=== PATIENT | female | born 1960 ===

== ENCOUNTER 2020-12-19 00:21 | Inpatient (IN) ==
[2020-12-19] MEDS ORDERED: SODIUM CHLORIDE 0.9% 1,000 ML IV STA (01:02)
[2020-12-19] MEDS ORDERED: PANTOPRAZOLE 40 MG VIAL IV STA (01:03)
[2020-12-19] MEDS ORDERED: ONDANSETRON 4 MG/2 ML VIAL IV STA (01:03)
[2020-12-19] MEDS ORDERED: SODIUM CHLORIDE 0.9% 1,000 ML IV PRN (01:06)
[2020-12-19] MEDS ORDERED: GLUCAGON 1 MG VIAL IM PRN (01:19)
[2020-12-19] MEDS ORDERED: DEXTROSE 50% 25 GM/50 ML VIAL IV PRN (01:19)
[2020-12-19] MEDS ORDERED: ONDANSETRON 4 MG/2 ML VIAL IV PRN (01:19)
[2020-12-19] MEDS ORDERED: ACETAMINOPHEN 325 MG TABLET PO PRN (01:19)
[2020-12-19 01:23] LABS: INR 1.3; PT Patient Result 14.1 SECS (9.8-11.9); Partial Thromboplastin Time 33.1 SECS (23.9-33.8)
[2020-12-19 01:26] LABS: Bilirubin,Total 1.9 MG/DL (0.2-1.0); Calcium 7.5 MG/DL (8.5-10.1); Osmolality,Calculated 278.5 MOS/KG (273-304); Potassium 3.6 MMOL/L (3.5-5.1); Total Protein 6.5 G/DL (5.0-7.5)
[2020-12-19 01:34] LABS: Basophils % 0.1 % (0.0-0.8); Eosinophils % 0.1 % (0.00-10.9); Immature Granulocytes % 0.7 %; Immature Granulocytes Absolute 0.06 #; Lymphocytes # 1.2 10*3/uL (1.4-4.0); Lymphocytes % 14.7 % (21.3-54.2); Mean Corpuscular HGB Conc 25.8 GM/DL (32-36); Mean Corpuscular Volume 79.5 FL (87-102); Monocytes % 6.5 % (1.7-12.7); NRBC # 0.03 10*3/uL; Neutrophils % 77.9 % (38.7-73.9); Red Cell Distribution Width 19.9 % (9.3-17.3); White Blood Count 8.4 T/CUMM (4-12)
[2020-12-19 01:40] LABS: Hematocrit 15.1 VOL% (35.7-47.0); Hemoglobin 3.9 GM/DL (12.0-16.0); Platelet Count 66 T/CUMM (130-400)
[2020-12-19 05:09] LABS: Platelet Estimate Decreased; Total Cells Counted 100
[2020-12-19 05:10] LABS: Acanthocytes 2+; Anisocytosis 2+; Hypochromasia 3+; Macrocytosis Slight; Microcytosis 2+; Ovalocytes 2+; Target Cells 1+
[2020-12-19 05:11] LABS: Lymphocytes 13 % (20-55); Polychromasia 2+; Segmented Neutrophils 79 % (50-85)
[2020-12-19] MEDS: PANTOPRAZOLE INJ 200 MG in SODIUM CHLORIDE 0.9% 250 ML IV SCH (05:42)
[2020-12-19] MEDS: LACTULOSE 20 GM/30 ML UDCUP PO SCH ×2 (15:06→20:46)
[2020-12-19 18:14] LABS: Hematocrit 28.6 VOL% (35.7-47.0)
[2020-12-19 18:15] LABS: Hemoglobin 8.4 GM/DL (12.0-16.0)
[2020-12-19 19:21] LABS: Hepatitis B Core IgM Quant < 0.05 Index; Hepatitis B Surface Ag Quant < 0.10 Index; Hepatitis B Surface Ag Result Non-Reactive (NonReactive); Hepatitis C Virus Ab Result Non-Reactive (NonReactive)
[2020-12-19 19:45] LABS: Hematocrit 30.4 VOL% (35.7-47.0)
[2020-12-20 01:00] LABS: Hematocrit 27.5 VOL% (35.7-47.0); Hemoglobin 8.3 GM/DL (12.0-16.0)
[2020-12-20 04:52] LABS: Folate 12.5 NG/ML (5.38-24.0); Vitamin B12 1197 PG/ML (211-911)
[2020-12-20 05:39] LABS: Basophils % 0.6 % (0.0-0.8); Eosinophils # 0.2 10*3/uL (0.0-0.87); Eosinophils % 3.6 % (0.00-10.9); Hematocrit 27.8 VOL% (35.7-47.0); Hemoglobin 8.6 GM/DL (12.0-16.0); Immature Granulocytes Absolute 0.05 #; Lymphocytes # 1.1 10*3/uL (1.4-4.0); Lymphocytes % 22.8 % (21.3-54.2); Mean Corpuscular HGB Conc 30.9 GM/DL (32-36); Mean Corpuscular Volume 81.8 FL (87-102); Monocytes % 9.2 % (1.7-12.7); NRBC # 0.07 10*3/uL; Neutrophils % 62.8 % (38.7-73.9); Red Cell Distribution Width 17.2 % (9.3-17.3)
[2020-12-20 05:40] LABS: Platelet Count 54 T/CUMM (130-400)
[2020-12-20 06:00] LABS: Hypochromasia 2+; Polychromasia Slight
[2020-12-20 06:01] LABS: Microcytosis 2+; Platelet Estimate Decreased
[2020-12-20 06:06] LABS: % Iron Saturation 16.9 % (18-50); Ferritin 12.8 ng/ml (8-252)
[2020-12-20] MEDS: PANTOPRAZOLE INJ 200 MG in SODIUM CHLORIDE 0.9% 250 ML IV SCH (06:42)
[2020-12-20 06:52] LABS: Sedimentation Rate-Westergren 51 MM/HR (0-30)
[2020-12-20 11:17] LABS: Hemoglobin A1 (Alkaline) 98.1 % (96.5-98.5); Hemoglobin A2 (Alkaline) 1.9 % (1.5-3.5)
[2020-12-20] MEDS: LACTATED RINGERS 1,000 ML IV SCH (11:32)
[2020-12-20] MEDS ORDERED: BISACODYL 5 MG TABLET PO ONE (12:00)
[2020-12-20] MEDS ORDERED: LIDOCAINE 2% 5 ML VIAL ONE (12:31)
[2020-12-20] MEDS ORDERED: propofoL 200 MG/20 ML VIAL IV ONE (12:31)
[2020-12-20] MEDS: LACTULOSE 20 GM/30 ML UDCUP PO SCH ×2 (14:21→20:48)
[2020-12-20] MEDS ORDERED: POLYETHYLENE GLYCOL POWDER 255 GM BOTTLE PO ONE (18:00)
[2020-12-20] MEDS: PROPRANOLOL 10 MG TABLET PO SCH (20:48)
[2020-12-21 04:55] LABS: Basophils % 0.7 % (0.0-0.8); Eosinophils # 0.2 10*3/uL (0.0-0.87); Eosinophils % 5.7 % (0.00-10.9); Hemoglobin 8.7 GM/DL (12.0-16.0); Immature Granulocytes Absolute 0.04 #; Lymphocytes % 25.7 % (21.3-54.2); Mean Corpuscular Volume 84.1 FL (87-102); Mean Platelet Volume 11.7 FL (9.6-12.0); Monocytes % 8.4 % (1.7-12.7); NRBC # 0.03 10*3/uL; Neutrophils % 58.5 % (38.7-73.9); Platelet Count 62 T/CUMM (130-400); Red Blood Count 3.45 MC/CUMM (3.8-5.5); Red Cell Distribution Width 17.6 % (9.3-17.3)
[2020-12-21 05:17] LABS: Hypochromasia 1+; Microcytosis 1+; Platelet Estimate Decreased
[2020-12-21 05:25] LABS: Albumin 2.1 G/DL (3.4-5.0); Bilirubin,Total 2.5 MG/DL (0.2-1.0); Calcium 7.7 MG/DL (8.5-10.1); Osmolality,Calculated 280.1 MOS/KG (273-304); Potassium 3.6 MMOL/L (3.5-5.1); Total Protein 6.7 G/DL (5.0-7.5)
[2020-12-21] MEDS ORDERED: propofoL 200 MG/20 ML VIAL IV ONE (13:16)
[2020-12-21] MEDS ORDERED: LIDOCAINE 2% 5 ML VIAL ONE ×2 (13:16)
[2020-12-21] MEDS: PANTOPRAZOLE 40 MG VIAL IV SCH ×3 (15:25→21:50)
[2020-12-21] MEDS: PROPRANOLOL 10 MG TABLET PO SCH ×2 (15:25→21:50)
[2020-12-21] MEDS: FUROSEMIDE 40 MG TABLET PO SCH (15:25)
[2020-12-21] MEDS: LACTULOSE 20 GM/30 ML UDCUP PO SCH ×3 (18:52→21:55)
[2020-12-21] MEDS: LACTATED RINGERS 1,000 ML IV SCH (19:27)
[2020-12-22 06:10] LABS: Basophils % 0.5 % (0.0-0.8); Eosinophils # 0.2 10*3/uL (0.0-0.87); Eosinophils % 4.2 % (0.00-10.9); Hematocrit 28.5 VOL% (35.7-47.0); Hemoglobin 8.5 GM/DL (12.0-16.0); Immature Granulocytes % 0.5 %; Immature Granulocytes Absolute 0.02 #; Lymphocytes # 1.1 10*3/uL (1.4-4.0); Lymphocytes % 29.1 % (21.3-54.2); Mean Corpuscular HGB Conc 29.8 GM/DL (32-36); Mean Corpuscular Volume 84.8 FL (87-102); Monocytes % 11.7 % (1.7-12.7); Platelet Count 60 T/CUMM (130-400); Red Blood Count 3.36 MC/CUMM (3.8-5.5); White Blood Count 3.9 T/CUMM (4-12)
[2020-12-22 06:31] LABS: Bilirubin,Total 2.1 MG/DL (0.2-1.0); Calcium 7.6 MG/DL (8.5-10.1); Potassium 3.4 MMOL/L (3.5-5.1); Total Protein 6.8 G/DL (5.0-7.5)
[2020-12-22 06:34] LABS: Hypochromasia 1+
[2020-12-22 06:35] LABS: Microcytosis 1+; Polychromasia Slight
[2020-12-22 06:36] LABS: Platelet Estimate Decreased
[2020-12-22] MEDS ORDERED: POTASSIUM CHLORIDE 20 MEQ/15 ML UDCUP PO ONE (08:56)
[2020-12-22] MEDS ORDERED: SPIRONOLACTONE 25 MG TABLET PO SCH (09:00)
[2020-12-22] MEDS ORDERED: FERROUS SULFATE 325 MG TABLET PO SCH (09:00)
[2020-12-22] MEDS: FUROSEMIDE 40 MG TABLET PO SCH (09:49)
[2020-12-22] MEDS: LACTULOSE 20 GM/30 ML UDCUP PO SCH (09:49)
[2020-12-22] MEDS: PROPRANOLOL 10 MG TABLET PO SCH (09:49)
[2020-12-22] MEDS: PANTOPRAZOLE 40 MG VIAL IV SCH (09:50)
[2020-12-22 11:52] VITALS: BP 166/78
== END 2020-12-22 13:30 | disposition home health service (06) | DRG 377 ==
LOC: EDUNIT# → EDBD → N.ED 00:21 → N.EDINP 01:19 → N.4E 04:48
PROVIDERS: ADMIT Internal Medicine; ATTEND Internal Medicine

== ENCOUNTER 2021-11-11 01:23 | Inpatient (IN) ==
[2021-11-11] MEDS ORDERED: ONDANSETRON 4 MG/2 ML VIAL IV STA (01:39)
[2021-11-11 02:24] LABS: ABG Base Excess 7.9 MMOL/L (-2.5-2.5); ABG HCO3 31.7 MMOL/L (20-26); ABG Oxygen Saturation 99.1 % (95-100); ABG PH 7.315 (7.35-7.45); ABG TCO2 33.7 MMOL/L (23-27)
[2021-11-11 02:43] LABS: Alanine Aminotransferase 28 U/L (13-56); Albumin 1.6 G/DL (3.4-5.0); Alkaline Phosphatase 113 U/L (45-117); Aspartate Amino Transferase 49 U/L (0-37); Blood Urea Nitrogen 32 MG/DL (7-18); Calcium 7.9 MG/DL (8.5-10.1); Carbon Dioxide 35 MMOL/L (21-32); Estimated Glom Filtration Rate 66 ML/MIN; Glucose 96 MG/DL (74-106); Potassium 4.9 MMOL/L (3.5-5.1); Sodium 143 MMOL/L (136-145); Total Protein 6.7 G/DL (6.4-8.2)
[2021-11-11 02:44] LABS: Platelet Estimate Decreased; Polychromasia 1+; Stomatocytes 1+
[2021-11-11 02:48] LABS: Basophils % 0.2 % (0.0-0.8); Eosinophils % 0.2 % (0.00-10.9); Hemoglobin 8.7 GM/DL (12.0-16.0); Immature Granulocytes % 0.7 %; Immature Granulocytes Absolute 0.04 #; Lymphocytes # 0.6 10*3/uL (1.4-4.0); Lymphocytes % 10.9 % (21.3-54.2); Mean Corpuscular HGB Conc 28.7 GM/DL (32-36); Mean Corpuscular Volume 101.3 FL (87-102); Mean Platelet Volume 12.2 FL (9.6-12.0); Monocytes % 8.5 % (1.7-12.7); NRBC # 0.03 10*3/uL; Neutrophils % 79.5 % (38.7-73.9); Platelet Count 66 T/CUMM (130-400); Red Blood Count 2.99 MC/CUMM (3.8-5.5); Red Cell Distribution Width 15.2 % (9.3-17.3); White Blood Count 5.9 T/CUMM (4-12)
[2021-11-11 02:52] LABS: Hematocrit 30.3 VOL% (35.7-47.0)
[2021-11-11] MEDS ORDERED: MIDAZOLAM 2 MG/2 ML VIAL ONE (02:53)
[2021-11-11 03:03] LABS: INR 1.2; PT Patient Result 13.2 SECS (10.5-12.0)
[2021-11-11] MEDS: MIDAZOLAM 100 MG in SODIUM CHLORIDE 0.9% 80 ML IV PRN (03:03)
[2021-11-11 03:20] LABS: Lymphocytes 9 % (20-55); Segmented Neutrophils 87 % (50-85); Total Cells Counted 100
[2021-11-11] MEDS ORDERED: NOREPINEPHRINE 8 MG in SODIUM CHLORIDE 0.9% 242 ML IV PRN ×2 (03:22→12:30)
[2021-11-11] MEDS ORDERED: FUROSEMIDE 40 MG/4 ML VIAL IV STA (03:24)
[2021-11-11] MEDS ORDERED: LACTULOSE 20 GM/30 ML UDCUP PO PRN (03:26)
[2021-11-11] MEDS ORDERED: ONDANSETRON 4 MG/2 ML VIAL IV PRN (04:04)
[2021-11-11] MEDS ORDERED: MELATONIN 3 MG TABLET PO PRN (04:04)
[2021-11-11] MEDS: cefTRIAXone 1,000 MG in SODIUM CHLORIDE 0.9% 100 ML IV SCH (04:49)
[2021-11-11] MEDS ORDERED: AZITHROMYCIN INJ 500 MG in SODIUM CHLORIDE 0.9% 250 ML IV ONE (06:00)
[2021-11-11] MEDS: ALBUTEROL/IPRATROPIUM 3 ML NEB RESP TX SCH ×3 (07:00→21:09)
[2021-11-11] MEDS: ZINC GLUCONATE 50 MG TABLET PO SCH (08:22)
[2021-11-11] MEDS: CHOLECALCIFEROL 1,000 UNIT TABLET PO SCH (08:22)
[2021-11-11] MEDS: ASCORBIC ACID 500 MG TABLET PO SCH ×2 (08:22→20:12)
[2021-11-11] MEDS: FUROSEMIDE 40 MG/4 ML VIAL IV SCH ×2 (08:23→16:46)
[2021-11-11] MEDS: PANTOPRAZOLE 40 MG VIAL IV SCH (08:23)
[2021-11-11] MEDS: DEXAMETHASONE 4 MG/1 ML VIAL IV SCH (08:24)
[2021-11-11] MEDS: CETIRIZINE 10 MG TABLET PO SCH (08:27)
[2021-11-11 09:27] LABS: ABG Base Excess 10.4 MMOL/L (-2.5-2.5); ABG HCO3 34.1 MMOL/L (20-26); ABG Oxygen Saturation 95.9 % (95-100); ABG PCO2 37.2 MM HG (35-48); ABG PH 7.562 (7.35-7.45); ABG PO2 73.6 MM HG (80-95); Allen Test Positive; Pt O2 Delivery Device Ventilator
[2021-11-11] MEDS ORDERED: SODIUM CHLORIDE 0.9% 500 ML IV ONE (18:04)
[2021-11-11 18:34] LABS: ABG Base Excess 9.6 MMOL/L (-2.5-2.5); ABG HCO3 32.4 MMOL/L (20-26); ABG Oxygen Saturation 97.4 % (95-100); ABG PCO2 36.6 MM HG (35-48); ABG PH 7.565 (7.35-7.45); ABG PO2 94.6 MM HG (80-95); ABG TCO2 33.5 MMOL/L (23-27); Glucose Heart Surgery 171 MG/DL (74-106); Hemoglobin Heart Surgery 8.9 G/DL (12.0-16.0); Potassium Heart/CVR 4.1 MMOL/L (3.5-5.1)
[2021-11-11] MEDS: ALBUTEROL 2 MG TABLET PO SCH (20:11)
[2021-11-12] MEDS: INSULIN LISPRO 100 UNIT/ML SUBCUT SCH ×4 (00:14→17:55)
[2021-11-12] MEDS: ALBUTEROL 2 MG TABLET PO SCH ×4 (00:15→17:55)
[2021-11-12] MEDS: ALBUTEROL INHALER 18 GM INH SCH ×4 (01:26→18:17)
[2021-11-12] MEDS: cefTRIAXone 1,000 MG in SODIUM CHLORIDE 0.9% 100 ML IV SCH (04:48)
[2021-11-12] MEDS: MIDAZOLAM 100 MG in SODIUM CHLORIDE 0.9% 80 ML IV PRN (04:49)
[2021-11-12 05:18] LABS: ABG Base Excess 9.8 MMOL/L (-2.5-2.5); ABG HCO3 33.5 MMOL/L (20-26); ABG Oxygen Saturation 97.2 % (95-100); ABG PCO2 42.4 MM HG (35-48); ABG PO2 87.4 MM HG (80-95); ABG TCO2 31.2 MMOL/L (23-27)
[2021-11-12] MEDS ORDERED: SODIUM CHLORIDE 0.9% 500 ML IV ONE (06:21)
[2021-11-12 06:29] LABS: Albumin 1.2 G/DL (3.4-5.0); Bilirubin,Total 1.2 MG/DL (0.20-1.00); Osmolality,Calculated 287.7 MOS/KG (273-304); Potassium 4.4 MMOL/L (3.5-5.1); Total Protein 6.3 G/DL (6.4-8.2)
[2021-11-12] MEDS: ASCORBIC ACID 500 MG TABLET PO SCH ×2 (08:26→20:05)
[2021-11-12] MEDS: PANTOPRAZOLE 40 MG VIAL IV SCH (08:26)
[2021-11-12] MEDS: ZINC GLUCONATE 50 MG TABLET PO SCH (08:26)
[2021-11-12] MEDS: CHOLECALCIFEROL 1,000 UNIT TABLET PO SCH (08:26)
[2021-11-12] MEDS: DEXAMETHASONE 4 MG/1 ML VIAL IV SCH (08:26)
[2021-11-12] MEDS: CETIRIZINE 10 MG TABLET PO SCH (08:26)
[2021-11-12] MEDS: FUROSEMIDE 40 MG/4 ML VIAL IV SCH (09:24)
[2021-11-12 09:46] LABS: Hematocrit 26.3 VOL% (35.7-47.0); Hemoglobin 7.7 GM/DL (12.0-16.0); Immature Granulocytes % 0.5 %; Immature Granulocytes Absolute 0.03 #; Lymphocytes # 0.7 10*3/uL (1.4-4.0); Lymphocytes % 13.1 % (21.3-54.2); Mean Corpuscular HGB Conc 29.3 GM/DL (32-36); Mean Corpuscular Volume 100.4 FL (87-102); Mean Platelet Volume 12.2 FL (9.6-12.0); Monocytes % 6.2 % (1.7-12.7); NRBC # 0.02 10*3/uL; Neutrophils % 80.2 % (38.7-73.9); Red Blood Count 2.62 MC/CUMM (3.8-5.5); Red Cell Distribution Width 15.9 % (9.3-17.3); White Blood Count 5.5 T/CUMM (4-12)
[2021-11-12 09:48] LABS: Platelet Count 41 T/CUMM (130-400)
[2021-11-12] MEDS: SODIUM CHLORIDE 0.45% 1,000 ML IV SCH ×2 (10:26→17:55)
[2021-11-12] MEDS: ALBUMIN 25% 12.5 GM/50 ML VIAL IV SCH (16:00)
[2021-11-13] MEDS: ALBUMIN 25% 12.5 GM/50 ML VIAL IV SCH ×4 (00:18→23:55)
[2021-11-13] MEDS: INSULIN LISPRO 100 UNIT/ML SUBCUT SCH ×5 (00:45→23:55)
[2021-11-13] MEDS: ALBUTEROL 2 MG TABLET PO SCH ×5 (00:45→23:55)
[2021-11-13] MEDS: ALBUTEROL INHALER 18 GM INH SCH ×4 (00:46→18:22)
[2021-11-13] MEDS: SODIUM CHLORIDE 0.45% 1,000 ML IV SCH ×3 (01:59→19:10)
[2021-11-13 04:37] LABS: ABG Base Excess 5.4 MMOL/L (-2.5-2.5); ABG Oxygen Saturation 95.9 % (95-100); ABG PCO2 44.6 MM HG (35-48); ABG PH 7.446 (7.35-7.45); ABG PO2 84.1 MM HG (80-95); ABG TCO2 31.4 MMOL/L (23-27)
[2021-11-13] MEDS: cefTRIAXone 1,000 MG in SODIUM CHLORIDE 0.9% 100 ML IV SCH (05:13)
[2021-11-13 06:09] LABS: Basophils % 0.1 % (0.0-0.8); Hemoglobin 7.4 GM/DL (12.0-16.0); Immature Granulocytes Absolute 0.07 #; Lymphocytes # 0.5 10*3/uL (1.4-4.0); Lymphocytes % 7.4 % (21.3-54.2); Mean Corpuscular HGB Conc 29.6 GM/DL (32-36); Mean Corpuscular Volume 98.4 FL (87-102); Mean Platelet Volume 12.7 FL (9.6-12.0); Monocytes % 5.9 % (1.7-12.7); NRBC # 0.02 10*3/uL; Neutrophils % 85.6 % (38.7-73.9); Red Blood Count 2.54 MC/CUMM (3.8-5.5); Red Cell Distribution Width 15.9 % (9.3-17.3)
[2021-11-13 06:15] LABS: White Blood Count 7.3 T/CUMM (4-12)
[2021-11-13 06:24] LABS: Platelet Count 37 T/CUMM (130-400)
[2021-11-13 06:26] LABS: Albumin 1.7 G/DL (3.4-5.0); Bilirubin,Total 1.1 MG/DL (0.20-1.00); Calcium 7.5 MG/DL (8.5-10.1); Osmolality,Calculated 286.8 MOS/KG (273-304); Potassium 4.6 MMOL/L (3.5-5.1); Total Protein 6.3 G/DL (6.4-8.2)
[2021-11-13 06:37] LABS: Hypochromia 1+; Lymphocytes 5 % (20-55); Microcytosis 1+; Nucleated Red Blood Cells 1 (0-5); Platelet Estimate Decreased; Segmented Neutrophils 87 % (50-85); Total Cells Counted 100
[2021-11-13] MEDS: ASCORBIC ACID 500 MG TABLET PO SCH ×2 (08:48→20:12)
[2021-11-13] MEDS: CHOLECALCIFEROL 1,000 UNIT TABLET PO SCH (08:48)
[2021-11-13] MEDS: ZINC GLUCONATE 50 MG TABLET PO SCH (08:48)
[2021-11-13] MEDS: CETIRIZINE 10 MG TABLET PO SCH (08:49)
[2021-11-13] MEDS: FAMOTIDINE 20 MG TABLET PO SCH ×2 (08:49→20:12)
[2021-11-13] MEDS: DEXAMETHASONE 4 MG/1 ML VIAL IV SCH (08:52)
[2021-11-13] MEDS ORDERED: ENOXAPARIN 60 MG/0.6 ML SYRINGE SUBCUT SCH (09:00)
[2021-11-13] MEDS: MICAFUNGIN 100 MG in SODIUM CHLORIDE 0.9% 100 ML IV SCH (10:05)
[2021-11-14] MEDS: ALBUTEROL INHALER 18 GM INH SCH ×4 (00:02→18:13)
[2021-11-14] MEDS: MIDAZOLAM 100 MG in SODIUM CHLORIDE 0.9% 80 ML IV PRN (00:55)
[2021-11-14] MEDS: SODIUM CHLORIDE 0.45% 1,000 ML IV SCH (03:15)
[2021-11-14] MEDS: cefTRIAXone 1,000 MG in SODIUM CHLORIDE 0.9% 100 ML IV SCH (04:00)
[2021-11-14 04:40] LABS: ABG Base Excess 8.1 MMOL/L (-2.5-2.5); ABG HCO3 31.9 MMOL/L (20-26); ABG Oxygen Saturation 97.6 % (95-100); ABG PCO2 43.2 MM HG (35-48); ABG PH 7.482 (7.35-7.45); ABG PO2 90.7 MM HG (80-95); ABG TCO2 30.8 MMOL/L (23-27); Allen Test Positive; Pt O2 Delivery Device Ventilator
[2021-11-14] MEDS: ALBUTEROL 2 MG TABLET PO SCH ×3 (06:00→17:59)
[2021-11-14] MEDS: INSULIN LISPRO 100 UNIT/ML SUBCUT SCH ×3 (06:00→17:58)
[2021-11-14 06:54] LABS: Albumin 1.6 G/DL (3.4-5.0); Calcium 7.9 MG/DL (8.5-10.1); Ferritin 79.1 ng/mL (8-252); Osmolality,Calculated 277.1 MOS/KG (273-304); Potassium 4.3 MMOL/L (3.5-5.1); Total Protein 5.9 G/DL (6.4-8.2)
[2021-11-14] MEDS: ALBUMIN 25% 12.5 GM/50 ML VIAL IV SCH ×2 (07:27→16:18)
[2021-11-14 08:11] LABS: Hematocrit 22.2 VOL% (35.7-47.0); Hemoglobin 6.5 GM/DL (12.0-16.0); Immature Granulocytes Absolute 0.04 #; Lymphocytes # 0.7 10*3/uL (1.4-4.0); Lymphocytes % 15.8 % (21.3-54.2); Mean Corpuscular HGB Conc 29.3 GM/DL (32-36); Mean Corpuscular Volume 99.1 FL (87-102); Mean Platelet Volume 12.8 FL (9.6-12.0); Monocytes % 6.4 % (1.7-12.7); NRBC # 0.03 10*3/uL; Neutrophils % 75.8 % (38.7-73.9); Red Blood Count 2.24 MC/CUMM (3.8-5.5); White Blood Count 4.2 T/CUMM (4-12)
[2021-11-14] MEDS: ASCORBIC ACID 500 MG TABLET PO SCH ×2 (08:11→20:52)
[2021-11-14] MEDS: CHOLECALCIFEROL 1,000 UNIT TABLET PO SCH (08:11)
[2021-11-14] MEDS: FAMOTIDINE 20 MG TABLET PO SCH ×2 (08:11→20:52)
[2021-11-14] MEDS: ZINC GLUCONATE 50 MG TABLET PO SCH (08:11)
[2021-11-14] MEDS: DEXAMETHASONE 4 MG/1 ML VIAL IV SCH (08:11)
[2021-11-14] MEDS: CETIRIZINE 10 MG TABLET PO SCH (08:12)
[2021-11-14 08:13] LABS: Platelet Count 31 T/CUMM (130-400)
[2021-11-14] MEDS ORDERED: SODIUM CHLORIDE 0.9% 1,000 ML IV PRN (09:29)
[2021-11-14] MEDS: MICAFUNGIN 100 MG in SODIUM CHLORIDE 0.9% 100 ML IV SCH (10:24)
[2021-11-14] MEDS ORDERED: FUROSEMIDE 40 MG/4 ML VIAL IV SCH (16:00)
[2021-11-14] MEDS: FUROSEMIDE 40 MG/4 ML VIAL IV SCH (16:19)
[2021-11-15] MEDS: INSULIN LISPRO 100 UNIT/ML SUBCUT SCH ×4 (00:19→18:11)
[2021-11-15] MEDS: ALBUMIN 25% 12.5 GM/50 ML VIAL IV SCH ×3 (00:23→16:52)
[2021-11-15] MEDS: ALBUTEROL INHALER 18 GM INH SCH ×4 (00:40→18:15)
[2021-11-15] MEDS: ALBUTEROL 2 MG TABLET PO SCH ×4 (00:46→18:11)
[2021-11-15 03:55] LABS: ABG Base Excess 6.1 MMOL/L (-2.5-2.5); ABG HCO3 29.9 MMOL/L (20-26); ABG Oxygen Saturation 93.2 % (95-100); ABG PCO2 38.4 MM HG (35-48); ABG PH 7.497 (7.35-7.45); ABG PO2 66.6 MM HG (80-95); ABG TCO2 27.9 MMOL/L (23-27)
[2021-11-15] MEDS: cefTRIAXone 1,000 MG in SODIUM CHLORIDE 0.9% 100 ML IV SCH (04:12)
[2021-11-15 05:30] LABS: Eosinophils % 0.5 % (0.00-10.9); Hematocrit 24.2 VOL% (35.7-47.0); Hemoglobin 7.5 GM/DL (12.0-16.0); Immature Granulocytes Absolute 0.04 #; Lymphocytes # 0.4 10*3/uL (1.4-4.0); Lymphocytes % 10.1 % (21.3-54.2); Mean Platelet Volume 13.4 FL (9.6-12.0); Monocytes % 6.9 % (1.7-12.7); Neutrophils % 81.5 % (38.7-73.9); Red Blood Count 2.63 MC/CUMM (3.8-5.5); Red Cell Distribution Width 17.9 % (9.3-17.3)
[2021-11-15 05:41] LABS: Platelet Count 33 T/CUMM (130-400)
[2021-11-15 05:53] LABS: Calcium 7.7 MG/DL (8.5-10.1); Osmolality,Calculated 286.7 MOS/KG (273-304)
[2021-11-15 05:54] LABS: Hypochromia 1+; Microcytosis 1+; Platelet Estimate Decreased
[2021-11-15 05:56] LABS: Ferritin 74.6 ng/mL (8-252)
[2021-11-15] MEDS: FUROSEMIDE 40 MG/4 ML VIAL IV SCH ×2 (09:32→16:53)
[2021-11-15] MEDS: FAMOTIDINE 20 MG TABLET PO SCH ×2 (09:33→20:40)
[2021-11-15] MEDS: DEXAMETHASONE 4 MG/1 ML VIAL IV SCH (09:33)
[2021-11-15] MEDS: CETIRIZINE 10 MG TABLET PO SCH (09:34)
[2021-11-15] MEDS: CHOLECALCIFEROL 1,000 UNIT TABLET PO SCH (09:34)
[2021-11-15] MEDS: ASCORBIC ACID 500 MG TABLET PO SCH ×2 (09:34→20:40)
[2021-11-15] MEDS: ZINC GLUCONATE 50 MG TABLET PO SCH (09:34)
[2021-11-15] MEDS: MIDAZOLAM 100 MG in SODIUM CHLORIDE 0.9% 80 ML IV PRN ×2 (10:59→23:43)
[2021-11-15] MEDS: MICAFUNGIN 100 MG in SODIUM CHLORIDE 0.9% 100 ML IV SCH (12:03)
[2021-11-16] MEDS: ALBUTEROL 2 MG TABLET PO SCH ×5 (00:28→23:47)
[2021-11-16] MEDS: INSULIN LISPRO 100 UNIT/ML SUBCUT SCH ×5 (00:29→23:50)
[2021-11-16] MEDS: ALBUMIN 25% 12.5 GM/50 ML VIAL IV SCH ×4 (00:29→23:47)
[2021-11-16] MEDS: ALBUTEROL INHALER 18 GM INH SCH ×4 (01:00→18:14)
[2021-11-16 04:00] LABS: ABG Base Excess 5.8 MMOL/L (-2.5-2.5); ABG HCO3 29.6 MMOL/L (20-26); ABG Oxygen Saturation 86.4 % (95-100); ABG PCO2 38.5 MM HG (35-48); ABG PH 7.492 (7.35-7.45); ABG TCO2 27.5 MMOL/L (23-27)
[2021-11-16 04:37] LABS: Hemoglobin 7.7 GM/DL (12.0-16.0); Immature Granulocytes % 0.6 %; Immature Granulocytes Absolute 0.04 #; Lymphocytes # 0.4 10*3/uL (1.4-4.0); Lymphocytes % 5.3 % (21.3-54.2); Mean Corpuscular HGB Conc 30.8 GM/DL (32-36); Mean Corpuscular Volume 92.9 FL (87-102); Mean Platelet Volume 12.9 FL (9.6-12.0); Monocytes % 5.8 % (1.7-12.7); Neutrophils % 88.3 % (38.7-73.9); Red Blood Count 2.69 MC/CUMM (3.8-5.5); Red Cell Distribution Width 17.7 % (9.3-17.3); White Blood Count 6.6 T/CUMM (4-12)
[2021-11-16 04:41] LABS: Platelet Count 38 T/CUMM (130-400)
[2021-11-16 05:01] LABS: Calcium 8.2 MG/DL (8.5-10.1); Osmolality,Calculated 281.1 MOS/KG (273-304); Potassium 3.9 MMOL/L (3.5-5.1)
[2021-11-16 05:13] LABS: Band Neutrophils 1 % (0-10); Hypochromia 1+; Lymphocytes 1 % (20-55); Microcytosis 1+; Platelet Estimate Decreased; Segmented Neutrophils 96 % (50-85); Target Cells Slight; Total Cells Counted 100
[2021-11-16] MEDS: cefTRIAXone 1,000 MG in SODIUM CHLORIDE 0.9% 100 ML IV SCH (05:17)
[2021-11-16] MEDS: MIDAZOLAM 100 MG in SODIUM CHLORIDE 0.9% 80 ML IV PRN ×2 (08:10→18:10)
[2021-11-16] MEDS: ZINC GLUCONATE 50 MG TABLET PO SCH (08:46)
[2021-11-16] MEDS: CHOLECALCIFEROL 1,000 UNIT TABLET PO SCH (08:46)
[2021-11-16] MEDS: ASCORBIC ACID 500 MG TABLET PO SCH ×2 (08:46→21:21)
[2021-11-16] MEDS: CETIRIZINE 10 MG TABLET PO SCH (08:46)
[2021-11-16] MEDS: POTASSIUM BICARB EFFERVESCENT 20 MEQ TAB.EFF PO PRN (08:46)
[2021-11-16] MEDS: FUROSEMIDE 40 MG/4 ML VIAL IV SCH ×2 (08:46→15:47)
[2021-11-16] MEDS: FAMOTIDINE 20 MG TABLET PO SCH ×2 (08:46→21:21)
[2021-11-16] MEDS: DEXAMETHASONE 4 MG/1 ML VIAL IV SCH (08:48)
[2021-11-16] MEDS: ENOXAPARIN 60 MG/0.6 ML SYRINGE SUBCUT SCH (12:58)
[2021-11-16] MEDS: MICAFUNGIN 100 MG in SODIUM CHLORIDE 0.9% 100 ML IV SCH (12:59)
[2021-11-16] MEDS ORDERED: PRAMOXINE/HYDROCORTISONE RECTAL FOAM 10 GM CAN RECTAL PRN (15:20)
[2021-11-16] MEDS: LACTULOSE 20 GM/30 ML UDCUP PO SCH ×2 (15:47→21:20)
[2021-11-17] MEDS: ALBUTEROL INHALER 18 GM INH SCH ×4 (00:16→18:16)
[2021-11-17 04:13] LABS: Hematocrit 24.2 VOL% (35.7-47.0); Hemoglobin 7.3 GM/DL (12.0-16.0); Immature Granulocytes % 0.8 %; Immature Granulocytes Absolute 0.04 #; Lymphocytes # 0.3 10*3/uL (1.4-4.0); Lymphocytes % 5.4 % (21.3-54.2); Mean Corpuscular HGB Conc 30.2 GM/DL (32-36); Mean Corpuscular Volume 94.9 FL (87-102); Mean Platelet Volume 11.5 FL (9.6-12.0); Monocytes % 7.9 % (1.7-12.7); Neutrophils % 85.9 % (38.7-73.9); Red Blood Count 2.55 MC/CUMM (3.8-5.5); Red Cell Distribution Width 17.7 % (9.3-17.3); White Blood Count 4.8 T/CUMM (4-12)
[2021-11-17 04:16] LABS: Platelet Count 39 T/CUMM (130-400)
[2021-11-17] MEDS: cefTRIAXone 1,000 MG in SODIUM CHLORIDE 0.9% 100 ML IV SCH (04:26)
[2021-11-17 04:30] LABS: Calcium 8.2 MG/DL (8.5-10.1); Osmolality,Calculated 287.8 MOS/KG (273-304); Potassium 3.9 MMOL/L (3.5-5.1)
[2021-11-17 04:50] LABS: Hypochromia 1+; Microcytosis 1+; Ovalocytes Slight; Platelet Estimate Decreased; Target Cells Slight
[2021-11-17 05:22] LABS: ABG Base Excess 5.4 MMOL/L (-2.5-2.5); ABG HCO3 29.3 MMOL/L (20-26); ABG Oxygen Saturation 98.8 % (95-100); ABG PH 7.474 (7.35-7.45); ABG TCO2 27.6 MMOL/L (23-27)
[2021-11-17] MEDS: INSULIN LISPRO 100 UNIT/ML SUBCUT SCH ×3 (06:37→17:50)
[2021-11-17] MEDS: ALBUTEROL 2 MG TABLET PO SCH ×3 (06:37→17:50)
[2021-11-17] MEDS: FERROUS SULFATE 325 MG TABLET PO SCH (08:35)
[2021-11-17] MEDS: ASCORBIC ACID 500 MG TABLET PO SCH ×2 (08:35→20:24)
[2021-11-17] MEDS: CHOLECALCIFEROL 1,000 UNIT TABLET PO SCH (08:35)
[2021-11-17] MEDS: DEXAMETHASONE 4 MG/1 ML VIAL IV SCH (08:36)
[2021-11-17] MEDS: CETIRIZINE 10 MG TABLET PO SCH (08:36)
[2021-11-17] MEDS: ZINC GLUCONATE 50 MG TABLET PO SCH (08:36)
[2021-11-17] MEDS: LACTULOSE 20 GM/30 ML UDCUP PO SCH ×3 (08:36→20:24)
[2021-11-17] MEDS: ENOXAPARIN 60 MG/0.6 ML SYRINGE SUBCUT SCH (08:36)
[2021-11-17] MEDS: POTASSIUM BICARB EFFERVESCENT 20 MEQ TAB.EFF PO PRN (08:36)
[2021-11-17] MEDS: FAMOTIDINE 20 MG TABLET PO SCH ×2 (08:37→20:24)
[2021-11-17] MEDS: FUROSEMIDE 40 MG/4 ML VIAL IV SCH ×2 (08:39→17:00)
[2021-11-17] MEDS: MIDAZOLAM 100 MG in SODIUM CHLORIDE 0.9% 80 ML IV PRN ×2 (09:39→22:15)
[2021-11-17] MEDS: ALBUMIN 25% 12.5 GM/50 ML VIAL IV SCH ×2 (09:47→15:01)
[2021-11-17] MEDS: MICAFUNGIN 100 MG in SODIUM CHLORIDE 0.9% 100 ML IV SCH (11:33)
[2021-11-18] MEDS: ALBUMIN 25% 12.5 GM/50 ML VIAL IV SCH ×2 (00:58→08:46)
[2021-11-18] MEDS: ALBUTEROL 2 MG TABLET PO SCH ×5 (00:58→23:58)
[2021-11-18] MEDS: INSULIN LISPRO 100 UNIT/ML SUBCUT SCH ×5 (00:58→23:58)
[2021-11-18] MEDS: ALBUTEROL INHALER 18 GM INH SCH ×4 (00:59→20:00)
[2021-11-18 04:23] LABS: ABG Base Excess 5.8 MMOL/L (-2.5-2.5); ABG HCO3 29.6 MMOL/L (20-26); ABG Oxygen Saturation 95.6 % (95-100); ABG PCO2 36.4 MM HG (35-48); ABG TCO2 27.4 MMOL/L (23-27); Allen Test Positive; Pt O2 Delivery Device Ventilator
[2021-11-18] MEDS: cefTRIAXone 1,000 MG in SODIUM CHLORIDE 0.9% 100 ML IV SCH (04:40)
[2021-11-18 08:12] LABS: Calcium 8.5 MG/DL (8.5-10.1); Osmolality,Calculated 287.5 MOS/KG (273-304); Potassium 3.9 MMOL/L (3.5-5.1)
[2021-11-18 08:17] LABS: Albumin 2.6 G/DL (3.4-5.0); Bilirubin,Total 0.9 MG/DL (0.20-1.00); Calcium 8.9 MG/DL (8.5-10.1); Ferritin 141.6 ng/mL (8-252); Osmolality,Calculated 281.1 MOS/KG (273-304); Total Protein 6.2 G/DL (6.4-8.2)
[2021-11-18] MEDS: DEXAMETHASONE 4 MG/1 ML VIAL IV SCH (08:17)
[2021-11-18] MEDS: LACTULOSE 20 GM/30 ML UDCUP PO SCH ×3 (08:17→20:02)
[2021-11-18] MEDS: ZINC GLUCONATE 50 MG TABLET PO SCH (08:17)
[2021-11-18] MEDS: ASCORBIC ACID 500 MG TABLET PO SCH ×2 (08:17→20:02)
[2021-11-18] MEDS: FERROUS SULFATE 325 MG TABLET PO SCH (08:17)
[2021-11-18] MEDS: FAMOTIDINE 20 MG TABLET PO SCH (08:17)
[2021-11-18] MEDS: CETIRIZINE 10 MG TABLET PO SCH (08:17)
[2021-11-18] MEDS: FUROSEMIDE 40 MG/4 ML VIAL IV SCH ×3 (08:17→20:02)
[2021-11-18] MEDS: CHOLECALCIFEROL 1,000 UNIT TABLET PO SCH (08:17)
[2021-11-18] MEDS: ENOXAPARIN 60 MG/0.6 ML SYRINGE SUBCUT SCH (08:17)
[2021-11-18 08:27] LABS: Eosinophils % 0.3 % (0.00-10.9); Hematocrit 23.4 VOL% (35.7-47.0); Immature Granulocytes % 1.3 %; Immature Granulocytes Absolute 0.04 #; Lymphocytes # 0.2 10*3/uL (1.4-4.0); Lymphocytes % 7.5 % (21.3-54.2); Mean Corpuscular HGB Conc 29.9 GM/DL (32-36); Mean Corpuscular Volume 95.5 FL (87-102); Mean Platelet Volume 12.8 FL (9.6-12.0); Monocytes % 8.2 % (1.7-12.7); Neutrophils % 82.7 % (38.7-73.9); Platelet Count 45 T/CUMM (130-400); Red Blood Count 2.45 MC/CUMM (3.8-5.5); Red Cell Distribution Width 17.7 % (9.3-17.3); White Blood Count 3.2 T/CUMM (4-12)
[2021-11-18 08:52] LABS: Hypochromia 1+
[2021-11-18 08:53] LABS: Microcytosis 1+; Platelet Estimate Decreased
[2021-11-18] MEDS: PANTOPRAZOLE 40 MG VIAL IV SCH (09:56)
[2021-11-18] MEDS: QUEtiapine 25 MG TABLET PO SCH (09:57)
[2021-11-18] MEDS ORDERED: SODIUM CHLORIDE 0.9% 1,000 ML IV PRN (10:06)
[2021-11-18] MEDS: MICAFUNGIN 100 MG in SODIUM CHLORIDE 0.9% 100 ML IV SCH (11:53)
[2021-11-18] MEDS: MIDAZOLAM 100 MG in SODIUM CHLORIDE 0.9% 80 ML IV PRN (12:15)
[2021-11-18 17:03] LABS: Hematocrit 25.8 VOL% (35.7-47.0); Hemoglobin 7.8 GM/DL (12.0-16.0); Immature Granulocytes % 1.8 %; Immature Granulocytes Absolute 0.05 #; Lymphocytes # 0.2 10*3/uL (1.4-4.0); Lymphocytes % 6.2 % (21.3-54.2); Mean Corpuscular HGB Conc 30.2 GM/DL (32-36); Mean Corpuscular Volume 94.5 FL (87-102); Mean Platelet Volume 12.2 FL (9.6-12.0); Monocytes % 7.6 % (1.7-12.7); Neutrophils % 84.4 % (38.7-73.9); Platelet Count 46 T/CUMM (130-400); Red Blood Count 2.73 MC/CUMM (3.8-5.5); Red Cell Distribution Width 17.7 % (9.3-17.3); White Blood Count 2.8 T/CUMM (4-12)
[2021-11-18 17:23] VITALS: BP 135/70
[2021-11-19] MEDS: ALBUTEROL INHALER 18 GM INH SCH ×4 (00:02→18:19)
[2021-11-19] MEDS: MIDAZOLAM 100 MG in SODIUM CHLORIDE 0.9% 80 ML IV PRN ×2 (02:55→14:20)
[2021-11-19] MEDS: FUROSEMIDE 40 MG/4 ML VIAL IV SCH ×3 (03:50→19:13)
[2021-11-19 04:21] LABS: ABG Base Excess 6.3 MMOL/L (-2.5-2.5); ABG HCO3 30.1 MMOL/L (20-26); ABG Oxygen Saturation 97.8 % (95-100); ABG PCO2 35.4 MM HG (35-48); ABG PH 7.526 (7.35-7.45); ABG PO2 89.8 MM HG (80-95); ABG TCO2 27.1 MMOL/L (23-27)
[2021-11-19] MEDS: INSULIN LISPRO 100 UNIT/ML SUBCUT SCH ×3 (05:56→17:36)
[2021-11-19] MEDS: ALBUTEROL 2 MG TABLET PO SCH ×3 (06:20→17:37)
[2021-11-19 07:35] LABS: Hematocrit 26.2 VOL% (35.7-47.0); Immature Granulocytes % 1.3 %; Immature Granulocytes Absolute 0.04 #; Lymphocytes # 0.3 10*3/uL (1.4-4.0); Lymphocytes % 8.9 % (21.3-54.2); Mean Corpuscular HGB Conc 30.5 GM/DL (32-36); Mean Corpuscular Volume 92.3 FL (87-102); Monocytes % 8.3 % (1.7-12.7); Neutrophils % 81.5 % (38.7-73.9); Platelet Count 48 T/CUMM (130-400); Red Blood Count 2.84 MC/CUMM (3.8-5.5); Red Cell Distribution Width 17.8 % (9.3-17.3); White Blood Count 3.1 T/CUMM (4-12)
[2021-11-19 07:48] LABS: Calcium 8.4 MG/DL (8.5-10.1); Osmolality,Calculated 287.5 MOS/KG (273-304); Potassium 3.9 MMOL/L (3.5-5.1)
[2021-11-19 08:33] LABS: Platelet Estimate Decreased
[2021-11-19 08:34] LABS: Anisocytosis 1+; Macrocytosis Slight
[2021-11-19] MEDS: DEXAMETHASONE 4 MG/1 ML VIAL IV SCH (08:56)
[2021-11-19] MEDS: PANTOPRAZOLE 40 MG VIAL IV SCH (08:56)
[2021-11-19] MEDS: ENOXAPARIN 60 MG/0.6 ML SYRINGE SUBCUT SCH (08:57)
[2021-11-19] MEDS: QUEtiapine 25 MG TABLET PO SCH (08:58)
[2021-11-19] MEDS: SPIRONOLACTONE 25 MG TABLET PO SCH (08:58)
[2021-11-19] MEDS: CETIRIZINE 10 MG TABLET PO SCH (08:59)
[2021-11-19] MEDS: ASCORBIC ACID 500 MG TABLET PO SCH ×2 (08:59→20:00)
[2021-11-19] MEDS: ZINC GLUCONATE 50 MG TABLET PO SCH (09:00)
[2021-11-19] MEDS: CHOLECALCIFEROL 1,000 UNIT TABLET PO SCH (09:00)
[2021-11-19] MEDS: LACTULOSE 20 GM/30 ML UDCUP PO SCH ×3 (09:00→20:00)
[2021-11-19] MEDS: FERROUS SULFATE 325 MG TABLET PO SCH (09:00)
[2021-11-19] MEDS ORDERED: FUROSEMIDE 40 MG/4 ML VIAL IV ONE (09:01)
[2021-11-19 10:53] LABS: ABG Base Excess 4.7 MMOL/L (-2.5-2.5); ABG HCO3 28.6 MMOL/L (20-26); ABG Oxygen Saturation 95.1 % (95-100); ABG PCO2 64.7 MM HG (35-48); ABG PH 7.307 (7.35-7.45); ABG PO2 91.4 MM HG (80-95); ABG TCO2 30.4 MMOL/L (23-27); Pt O2 Delivery Device Ventilator
[2021-11-19] MEDS: MICAFUNGIN 100 MG in SODIUM CHLORIDE 0.9% 100 ML IV SCH (11:44)
[2021-11-19] MEDS: POTASSIUM BICARB EFFERVESCENT 20 MEQ TAB.EFF PO PRN (14:18)
[2021-11-20] MEDS: INSULIN LISPRO 100 UNIT/ML SUBCUT SCH ×4 (00:46→17:06)
[2021-11-20] MEDS: ALBUTEROL 2 MG TABLET PO SCH ×4 (00:47→17:06)
[2021-11-20] MEDS: ALBUTEROL INHALER 18 GM INH SCH ×4 (00:47→18:04)
[2021-11-20] MEDS: FUROSEMIDE 40 MG/4 ML VIAL IV SCH ×3 (02:48→19:44)
[2021-11-20] MEDS: MIDAZOLAM 100 MG in SODIUM CHLORIDE 0.9% 80 ML IV PRN ×2 (04:02→16:30)
[2021-11-20 04:07] LABS: ABG Base Excess 6.8 MMOL/L (-2.5-2.5); ABG HCO3 30.6 MMOL/L (20-26); ABG Oxygen Saturation 99.3 % (95-100); ABG PCO2 39.8 MM HG (35-48); ABG PH 7.494 (7.35-7.45); ABG TCO2 28.3 MMOL/L (23-27)
[2021-11-20 06:36] LABS: Calcium 8.6 MG/DL (8.5-10.1); Osmolality,Calculated 289.7 MOS/KG (273-304); Potassium 4.4 MMOL/L (3.5-5.1)
[2021-11-20 06:48] LABS: Albumin 2.4 G/DL (3.4-5.0); Bilirubin,Total 1.1 MG/DL (0.20-1.00); Ferritin 87.2 ng/mL (8-252); Potassium 4.4 MMOL/L (3.5-5.1); Total Protein 6.6 G/DL (6.4-8.2)
[2021-11-20 07:23] LABS: Eosinophils % 0.3 % (0.00-10.9); Hematocrit 30.5 VOL% (35.7-47.0); Hemoglobin 8.7 GM/DL (12.0-16.0); Immature Granulocytes % 0.6 %; Immature Granulocytes Absolute 0.02 #; Lymphocytes # 0.3 10*3/uL (1.4-4.0); Lymphocytes % 8.6 % (21.3-54.2); Mean Corpuscular HGB Conc 28.5 GM/DL (32-36); Mean Platelet Volume 11.5 FL (9.6-12.0); Monocytes % 8.6 % (1.7-12.7); Neutrophils % 81.9 % (38.7-73.9); Platelet Count 63 T/CUMM (130-400); Red Blood Count 3.08 MC/CUMM (3.8-5.5); Red Cell Distribution Width 18.4 % (9.3-17.3); White Blood Count 3.3 T/CUMM (4-12)
[2021-11-20] MEDS: PANTOPRAZOLE 40 MG VIAL IV SCH (08:05)
[2021-11-20] MEDS: DEXAMETHASONE 4 MG/1 ML VIAL IV SCH (08:12)
[2021-11-20] MEDS: QUEtiapine 25 MG TABLET PO SCH (08:14)
[2021-11-20] MEDS: ENOXAPARIN 60 MG/0.6 ML SYRINGE SUBCUT SCH (08:14)
[2021-11-20] MEDS: FERROUS SULFATE 325 MG TABLET PO SCH (08:14)
[2021-11-20] MEDS: ZINC GLUCONATE 50 MG TABLET PO SCH (08:14)
[2021-11-20] MEDS: CHOLECALCIFEROL 1,000 UNIT TABLET PO SCH (08:14)
[2021-11-20] MEDS: ASCORBIC ACID 500 MG TABLET PO SCH ×2 (08:14→20:07)
[2021-11-20] MEDS: LACTULOSE 20 GM/30 ML UDCUP PO SCH ×3 (08:14→20:07)
[2021-11-20] MEDS: SPIRONOLACTONE 25 MG TABLET PO SCH (08:14)
[2021-11-20] MEDS: CETIRIZINE 10 MG TABLET PO SCH (08:14)
[2021-11-20 10:07] LABS: Anisocytosis 1+; Platelet Estimate Decreased
[2021-11-20 10:08] LABS: Macrocytosis Slight
[2021-11-20] MEDS: MICAFUNGIN 100 MG in SODIUM CHLORIDE 0.9% 100 ML IV SCH (11:04)
[2021-11-20 12:23] LABS: ABG Base Excess 6.3 MMOL/L (-2.5-2.5); ABG HCO3 30.1 MMOL/L (20-26); ABG PH 7.412 (7.35-7.45); ABG PO2 82.8 MM HG (80-95); ABG TCO2 29.4 MMOL/L (23-27); Pt O2 Delivery Device Ventilator
[2021-11-21] MEDS: ALBUTEROL INHALER 18 GM INH SCH ×4 (00:07→18:18)
[2021-11-21] MEDS: INSULIN LISPRO 100 UNIT/ML SUBCUT SCH ×5 (00:07→23:16)
[2021-11-21] MEDS: ALBUTEROL 2 MG TABLET PO SCH ×5 (00:07→23:17)
[2021-11-21 03:48] LABS: ABG Base Excess 6.4 MMOL/L (-2.5-2.5); ABG HCO3 30.2 MMOL/L (20-26); ABG PCO2 42.3 MM HG (35-48); ABG PH 7.468 (7.35-7.45); ABG PO2 80.4 MM HG (80-95); ABG TCO2 28.3 MMOL/L (23-27)
[2021-11-21] MEDS: FUROSEMIDE 40 MG/4 ML VIAL IV SCH ×3 (03:48→19:59)
[2021-11-21 04:55] LABS: Hematocrit 26.6 VOL% (35.7-47.0); Hemoglobin 8.2 GM/DL (12.0-16.0); Immature Granulocytes % 0.8 %; Immature Granulocytes Absolute 0.03 #; Lymphocytes # 0.3 10*3/uL (1.4-4.0); Lymphocytes % 7.5 % (21.3-54.2); Mean Corpuscular HGB Conc 30.8 GM/DL (32-36); Mean Platelet Volume 12.3 FL (9.6-12.0); Monocytes % 7.7 % (1.7-12.7); Platelet Count 57 T/CUMM (130-400); Red Blood Count 2.86 MC/CUMM (3.8-5.5); Red Cell Distribution Width 17.9 % (9.3-17.3); White Blood Count 3.6 T/CUMM (4-12)
[2021-11-21 05:20] LABS: Albumin 2.3 G/DL (3.4-5.0); Bilirubin,Total 1.1 MG/DL (0.20-1.00); Calcium 8.8 MG/DL (8.5-10.1); Osmolality,Calculated 285.8 MOS/KG (273-304); Total Protein 6.4 G/DL (6.4-8.2)
[2021-11-21 05:27] LABS: Hypochromia 1+; Microcytosis 1+; Platelet Estimate Decreased
[2021-11-21] MEDS: CETIRIZINE 10 MG TABLET PO SCH (08:23)
[2021-11-21] MEDS: FERROUS SULFATE 325 MG TABLET PO SCH (08:23)
[2021-11-21] MEDS: ZINC GLUCONATE 50 MG TABLET PO SCH (08:23)
[2021-11-21] MEDS: LACTULOSE 20 GM/30 ML UDCUP PO SCH ×3 (08:23→20:00)
[2021-11-21] MEDS: ASCORBIC ACID 500 MG TABLET PO SCH ×2 (08:24→20:00)
[2021-11-21] MEDS: QUEtiapine 25 MG TABLET PO SCH (08:24)
[2021-11-21] MEDS: CHOLECALCIFEROL 1,000 UNIT TABLET PO SCH (08:24)
[2021-11-21] MEDS: SPIRONOLACTONE 25 MG TABLET PO SCH (08:24)
[2021-11-21] MEDS: ENOXAPARIN 60 MG/0.6 ML SYRINGE SUBCUT SCH (08:25)
[2021-11-21] MEDS: PANTOPRAZOLE 40 MG VIAL IV SCH (08:25)
[2021-11-21] MEDS: MIDAZOLAM 100 MG in SODIUM CHLORIDE 0.9% 80 ML IV PRN ×2 (11:41→22:22)
[2021-11-22] MEDS: ALBUTEROL INHALER 18 GM INH SCH ×4 (00:38→18:18)
[2021-11-22] MEDS: FUROSEMIDE 40 MG/4 ML VIAL IV SCH ×3 (03:40→19:26)
[2021-11-22 04:15] LABS: ABG Base Excess 8.3 MMOL/L (-2.5-2.5); ABG Oxygen Saturation 92.5 % (95-100); ABG PCO2 38.8 MM HG (35-48); ABG PH 7.522 (7.35-7.45); ABG PO2 63.2 MM HG (80-95); ABG TCO2 29.3 MMOL/L (23-27); Allen Test Positive; Pt O2 Delivery Device Ventilator
[2021-11-22 04:57] LABS: Albumin 2.3 G/DL (3.4-5.0); Bilirubin,Total 1.3 MG/DL (0.20-1.00); Osmolality,Calculated 285.8 MOS/KG (273-304); Potassium 4.1 MMOL/L (3.5-5.1); Total Protein 6.5 G/DL (6.4-8.2)
[2021-11-22 05:13] LABS: Basophils % 0.2 % (0.0-0.8); Eosinophils # 0.1 10*3/uL (0.0-0.87); Eosinophils % 1.4 % (0.00-10.9); Hemoglobin 9.2 GM/DL (12.0-16.0); Immature Granulocytes % 0.8 %; Immature Granulocytes Absolute 0.04 #; Lymphocytes # 0.8 10*3/uL (1.4-4.0); Lymphocytes % 16.4 % (21.3-54.2); Mean Corpuscular HGB Conc 28.2 GM/DL (32-36); Mean Platelet Volume 12.1 FL (9.6-12.0); Monocytes % 8.4 % (1.7-12.7); Neutrophils % 72.8 % (38.7-73.9); Platelet Count 63 T/CUMM (130-400); Red Blood Count 3.26 MC/CUMM (3.8-5.5); Red Cell Distribution Width 18.6 % (9.3-17.3)
[2021-11-22 05:14] LABS: Hematocrit 32.6 VOL% (35.7-47.0)
[2021-11-22] MEDS: ALBUTEROL 2 MG TABLET PO SCH (05:34)
[2021-11-22] MEDS: INSULIN LISPRO 100 UNIT/ML SUBCUT SCH ×4 (05:34→23:47)
[2021-11-22 05:37] LABS: Hypochromia 1+; Microcytosis 1+
[2021-11-22 05:38] LABS: Ovalocytes Slight; Platelet Estimate Decreased
[2021-11-22] MEDS: CHOLECALCIFEROL 1,000 UNIT TABLET PO SCH (08:39)
[2021-11-22] MEDS: ASCORBIC ACID 500 MG TABLET PO SCH ×2 (08:39→20:06)
[2021-11-22] MEDS: SPIRONOLACTONE 25 MG TABLET PO SCH (08:39)
[2021-11-22] MEDS: ZINC GLUCONATE 50 MG TABLET PO SCH (08:39)
[2021-11-22] MEDS: FAMOTIDINE 20 MG TABLET PO SCH ×2 (08:39→20:06)
[2021-11-22] MEDS: ENOXAPARIN 60 MG/0.6 ML SYRINGE SUBCUT SCH (08:40)
[2021-11-22] MEDS: LACTULOSE 20 GM/30 ML UDCUP PO SCH ×3 (08:40→20:06)
[2021-11-22] MEDS: QUEtiapine 25 MG TABLET PO SCH (08:40)
[2021-11-22] MEDS: FERROUS SULFATE 325 MG TABLET PO SCH (08:40)
[2021-11-22] MEDS: CETIRIZINE 10 MG TABLET PO SCH (08:40)
[2021-11-22 11:06] LABS: ABG Base Excess 7.6 MMOL/L (-2.5-2.5); ABG HCO3 33.4 MMOL/L (20-26); ABG Oxygen Saturation 95.7 % (95-100); ABG PH 7.409 (7.35-7.45); ABG PO2 90.1 MM HG (80-95); Pt O2 Delivery Device Ventilator
[2021-11-22 16:52] LABS: ABG Base Excess 8.4 MMOL/L (-2.5-2.5); ABG HCO3 32.1 MMOL/L (20-26); ABG Oxygen Saturation 91.3 % (95-100); ABG PCO2 59.1 MM HG (35-48); ABG PH 7.382 (7.35-7.45); ABG PO2 69.8 MM HG (80-95); ABG TCO2 32.5 MMOL/L (23-27)
[2021-11-23] MEDS: ALBUTEROL INHALER 18 GM INH SCH ×3 (00:09→13:49)
[2021-11-23 03:11] LABS: ABG Base Excess 9.9 MMOL/L (-2.5-2.5); ABG HCO3 35.6 MMOL/L (20-26); ABG Oxygen Saturation 94.6 % (95-100); ABG PCO2 55.6 MM HG (35-48); ABG PH 7.424 (7.35-7.45); ABG PO2 75.4 MM HG (80-95); ABG TCO2 37.3 MMOL/L (23-27)
[2021-11-23] MEDS: FUROSEMIDE 40 MG/4 ML VIAL IV SCH ×2 (03:38→13:48)
[2021-11-23 05:26] LABS: Eosinophils # 0.2 10*3/uL (0.0-0.87); Eosinophils % 5.2 % (0.00-10.9); Hematocrit 28.7 VOL% (35.7-47.0); Hemoglobin 8.6 GM/DL (12.0-16.0); Immature Granulocytes Absolute 0.03 #; Lymphocytes # 0.6 10*3/uL (1.4-4.0); Lymphocytes % 18.1 % (21.3-54.2); Mean Corpuscular Volume 95.3 FL (87-102); Mean Platelet Volume 12.4 FL (9.6-12.0); Monocytes % 6.8 % (1.7-12.7); Neutrophils % 68.9 % (38.7-73.9); Platelet Count 52 T/CUMM (130-400); Red Blood Count 3.01 MC/CUMM (3.8-5.5); Red Cell Distribution Width 18.1 % (9.3-17.3); White Blood Count 3.1 T/CUMM (4-12)
[2021-11-23] MEDS: INSULIN LISPRO 100 UNIT/ML SUBCUT SCH ×2 (05:51→12:32)
[2021-11-23 05:52] LABS: Hypochromia 2+
[2021-11-23 05:53] LABS: Anisocytosis 1+; Microcytosis 1+; Ovalocytes Slight; Platelet Estimate Decreased
[2021-11-23 05:55] LABS: Albumin 2.2 G/DL (3.4-5.0); Bilirubin,Total 2.2 MG/DL (0.20-1.00); Calcium 8.7 MG/DL (8.5-10.1); Osmolality,Calculated 285.5 MOS/KG (273-304); Potassium 4.3 MMOL/L (3.5-5.1); Total Protein 6.6 G/DL (6.4-8.2)
[2021-11-23] MEDS: CETIRIZINE 10 MG TABLET PO SCH (11:06)
[2021-11-23] MEDS: ZINC GLUCONATE 50 MG TABLET PO SCH (11:06)
[2021-11-23] MEDS: CHOLECALCIFEROL 1,000 UNIT TABLET PO SCH (11:07)
[2021-11-23] MEDS: ENOXAPARIN 60 MG/0.6 ML SYRINGE SUBCUT SCH (11:07)
[2021-11-23] MEDS: FERROUS SULFATE 325 MG TABLET PO SCH (11:07)
[2021-11-23] MEDS: ASCORBIC ACID 500 MG TABLET PO SCH (11:07)
[2021-11-23] MEDS: SPIRONOLACTONE 25 MG TABLET PO SCH (11:08)
[2021-11-23] MEDS: QUEtiapine 25 MG TABLET PO SCH (11:08)
[2021-11-23] MEDS: LACTULOSE 20 GM/30 ML UDCUP PO SCH ×2 (11:08→15:51)
[2021-11-23] MEDS: FAMOTIDINE 20 MG TABLET PO SCH (11:08)
== END 2021-11-23 15:50 | DRG 130 ==
LOC: EDUNIT# → N.ED 01:23 → SUATTDRO 05:40 → N.EDINP 05:40 → N.CC 05:48
PROVIDERS: ADMIT Internal Medicine; ATTEND Internal Medicine